=== PATIENT | female | born 1995 | race African-American/Black ===

== ENCOUNTER 2019-01-30 10:33 | Outpatient (CLI) | payer OTHER ==
--- NOTE | 2019-01-30 13:59 | ULT ---
OBSTETRICAL ULTRASOUND: INDICATIONS: Evaluate anatomy. COMPARISON: None. FINDINGS: There is a single live intrauterine gestation, in a cephalic presentation. The placenta is posterior in location without evidence of previa. Cardiac activity is noted at 167 beats per minute. The biparietal diameter is measured at 4.45 cm, giving a gestational age of 19 weeks 4 days. The head circumference measures 16.7 cm, giving an estimated gestational age of 19 weeks 3 days. The abdominal circumference measures 14.54 cm, giving an estimated gestational age of 19 weeks 6 days . The femoral length measures 2.98 cm, giving an estimated gestational age of 19 weeks 2 days. The average gestational age by ultrasound is 19 weeks 4 days with an estimated due date of 06/22/2019 . Clinical age is 19 weeks 6 days. Estimated due date is 06/20/2019. The estimated weight is 298 g, plus or minus 44 g (0 lbs 11 oz), 28th percentile. The visualized survey appears within normal limits for the head, stomach, kidneys, cord inserti on, bladder, spine, lips, nose, and extremities, as well as three-vessel cord. There is as mall echo genic focus seen adjacent to the distal and medial wall of the left ventricle, near the interventricu lar septum. This measures 2.6 mm in size. The head, kidneys, cord insertion, bladder, spine, lips, nose, extremities, and three-vessel cord appear within normal limits. The stomach is not well documented. IMPRESSION: 1. Single live intrauterine gestation with size and dates as above. 2. Small echogenic focus seen adjacent to the distal aspect of the interventricular septum within th e left ventricle is suspicious for either a small papillary muscle or possibly a cardiac echogenic fo cus. This can be a marker for trisomy. Short-term followup in two weeks is recommended. At this ti me, completion of the survey could be performed, as the stomach was not well documented. POS: [facility]
== END 2019-01-30 10:34 | disposition home or self-care (01) ==
LOC: BICULT 10:33
PROVIDERS: ATTEND Family Medicine
DX: Z34.82 Encounter for supervision of other normal pregnancy, second trimester (principal); Z3A.19 19 weeks gestation of pregnancy
CPT/HCPCS: 76805

== ENCOUNTER 2019-05-19 21:20 | Day surgery (SDC) | payer OTHER ==
[2019-05-19 21:59] VITALS: BP 87/51; TEMP 98.4; BMI 24.9
--- NOTE | 2019-05-19 22:17 | PDOC.LDHP ---
Labor and Delivery H&P Chief complaint: abdominal pain HPI: 24 y/o at 35w3d, patient of Dr. Spencer, presents with lower abdominal pains, worse with walking. Denies VB, LOF, or decreased FM. ROS neg for HEENT, cv, pulm, gi, gu, neuro, psych, skin, musculoskeletal or constitutional symptoms other than mentioned above OB History Details: 2 Term SVDs 1 at 36 weeks Current complications: none Past Medical History: None Current medications: pre- vitamins Previous surgical history: none Allergies/Adverse Reactions: Allergies Allergy/AdvReac Type Severity Reaction Status Date / Time No Known Allergies Allergy Unverified 05/19/19 22:00 Social history: none - Physical Exam Vital signs reviewed and normal: yes General: NAD, resting Lungs: nonlabored breathing Abdomen: gravid Extremeties: no edema FHT: category 1 (140s, mod variability, + accels, no decels) [place] contractions every: occasional - Vaginal Exam cm dilated: 1 Effacement: 0% Station: -3 - Assessment 24 y/o at 35w3d with musculoskeletal discomforts of and no e/ o active labor. status reassuring with reactive NST. - Plan -: D/c home with precautions. Comfort measures discussed. Advised to keep all appointments.
== END 2019-05-19 22:27 | disposition home or self-care (01) ==
LOC: L&D/OP 21:20
PROVIDERS: ATTEND Family Medicine
DX: O26.893 Other specified pregnancy related conditions, third trimester (principal); R10.30 Lower abdominal pain, unspecified; Z3A.35 35 weeks gestation of pregnancy
CPT/HCPCS: 99283

== ENCOUNTER 2019-06-16 09:16 | Inpatient (IN) | payer OTHER ==
[2019-06-17] MEDS ORDERED: NS w/ Oxytocin 10 units 500 ML IV SCH ×2 (03:13)
[2019-06-17] MEDS ORDERED: Carboprost 250 MCG/ML AMP IM PRN (03:13)
[2019-06-17] MEDS ORDERED: hydrALAZINE 20 MG/ML VIAL SLOW IVP PRN ×2 (03:13→12:13)
[2019-06-17] MEDS ORDERED: Butorphanol Tartrate 1 MG/ML VIAL SLOW IVP PRN (03:13)
[2019-06-17] MEDS ORDERED: Misoprostol 200 MCG TAB PR PRN (03:13)
[2019-06-17] MEDS ORDERED: NS / Oxytocin 40 units/1000ml 1,000 ML IV PRN (03:13)
[2019-06-17] MEDS ORDERED: Ibuprofen 800 MG TAB PO PRN (03:13)
[2019-06-17] MEDS ORDERED: Ondansetron PF 4 MG/2 ML Vial IVP PRN ×3 (03:13→12:13)
[2019-06-17] MEDS ORDERED: Methylergonovine 0.2 MG/ML VIAL IM PRN (03:13)
[2019-06-17] MEDS ORDERED: HYDROcodone/Acetaminophen 5/325 mg Tablet PO PRN ×3 (03:13→12:13)
[2019-06-17] MEDS ORDERED: Lidocaine 1% (PF) 30 ML VIAL SC PRN (03:13)
[2019-06-17] MEDS ORDERED: Diphenoxylate HCl/Atropine Tablet PO PRN (03:13)
[2019-06-17] MEDS ORDERED: Promethazine HCl 25 MG/ML VIAL IM PRN ×3 (03:13→12:13)
[2019-06-17] MEDS ORDERED: Penicillin G Potassium 5 MILL.UNITS in Sodium Chloride 0.9% 100 ML IVPB SCH (03:30)
[2019-06-17 03:31] VITALS: BMI 23.7
[2019-06-17] MEDS: Lactated Ringer's 1,000 ML IV SCH ×3 (04:09→15:52)
[2019-06-17] MEDS: Misoprostol 100 MCG TAB PO SCH ×2 (04:27→15:52)
[2019-06-17 04:29] LABS: Hemoglobin 8.4 g/dL (12.0-16.0); Mean Corpuscular HGB CONC 33.1 g/dL (32.0-36.0); Mean Corpuscular Hemoglobin 26.1 pg (27.0-31.0); Mean Corpuscular Volume 78.6 fL (78.0-98.0); Mean Platelet Volume 8.4 fL (7.4-10.4); Platelet Count 309 thou/uL (130-400); Red Blood Cell (RBC) Count 3.21 mill/uL (4.20-5.40); White Blood Cell (WBC) Count 11.7 thou/uL (4.8-10.8)
[2019-06-17 05:07] LABS: HBSAg Index 0.28 S/CO (0-0.99); Hep B Surf Ag Non-Reactive S/CO (NonReactive)
[2019-06-17 05:07] LABS: Syphilis Antibody Nonreactive (Nonreactive); Syphilis Antibody Index 0.04 S/CO (<1.00 Non-Reactive)
[2019-06-17] MEDS ORDERED: Fentanyl 4 mcg/Bup 0.1% Cadd 100 ML ONE (08:20)
[2019-06-17] MEDS: Penicillin G 2.5 MILL.units 2.5 MILL.UNITS in Premix Bag 1 BAG IVPB SCH ×3 (08:34→15:53)
[2019-06-17] MEDS ORDERED: Lactated Ringer's 500 ML IV PRN (10:47)
[2019-06-17] MEDS ORDERED: diphenhydrAMINE 50 MG/ML VIAL IVP PRN (10:47)
[2019-06-17] MEDS ORDERED: Acetaminophen 325 MG TAB PO PRN (10:47)
[2019-06-17] MEDS ORDERED: ePHEDrine/0.9% NaCl/PF SYRINGE 50 mg/10 ml SLOW IVP PRN (10:47)
[2019-06-17] MEDS ORDERED: Naloxone HCl 0.4 mg/ml Vial IVP PRN ×2 (10:47)
[2019-06-17] MEDS ORDERED: Communication Order-Pharmacy FS SCH (11:00)
[2019-06-17] MEDS ORDERED: Fentanyl 4 mcg/Bupivacaine 0.1% Cassette 100 ML EPIDURAL SCH (11:00)
[2019-06-17] MEDS ORDERED: diphenhydrAMINE 25 MG CAP PO PRN (12:13)
[2019-06-17] MEDS ORDERED: NS / Oxytocin 40 units/1000ml 1,000 ML IV SCH (12:13)
[2019-06-17] MEDS ORDERED: Preparation H Ointment 28 GM TUBE PR PRN (12:13)
[2019-06-17] MEDS ORDERED: Benzocaine-Menthol 82.5 ML CAN TOP PRN (12:13)
[2019-06-17] MEDS ORDERED: Milk Of Magnesia 30 ML UDCUP PO PRN (12:13)
[2019-06-17] MEDS ORDERED: Bisacodyl 10 MG SUPP PR PRN (12:13)
[2019-06-17] MEDS ORDERED: Lanolin Ointment 7 GM TUBE TOP PRN (12:13)
[2019-06-17] MEDS: Ibuprofen 800 MG TAB PO SCH ×2 (15:51→20:28)
[2019-06-17] MEDS: Ferrous Sulfate 325 MG TAB PO SCH (17:14)
[2019-06-17] MEDS: Docusate Calcium (SURFAK) 240 MG CAP PO SCH (20:27)
[2019-06-18] MEDS: Ibuprofen 800 MG TAB PO SCH ×2 (04:52→14:18)
[2019-06-18 08:35] LABS: #Basophils 0.1 thou/uL (0.0-0.2); #Eosinphils 0.1 thou/uL (0.0-0.7); #Lymphocytes 2.5 thou/uL (1.20-3.40); #Monocytes 1.3 thou/uL (0.11-0.59); #Neutrophils 12.7 thou/uL (1.40-6.50); %Basophils 0.3 % (0.0-1.0); %Eosinophils 0.5 % (0.0-10.0); %Lymphocytes 15.2 % (21.0-51.0); %Monocytes 7.6 % (0.0-10.0); %Neutrophils 76.4 % (42.0-75.0); Hemoglobin 8.2 g/dL (12.0-16.0); Mean Corpuscular HGB CONC 31.8 g/dL (32.0-36.0); Mean Corpuscular Volume 78.7 fL (78.0-98.0); Mean Platelet Volume 8.4 fL (7.4-10.4); Platelet Count 264 thou/uL (130-400); RBC Distribution Width 14.8 % (11.5-14.5); Red Blood Cell (RBC) Count 3.27 mill/uL (4.20-5.40); White Blood Cell (WBC) Count 16.6 thou/uL (4.8-10.8)
[2019-06-18] MEDS ORDERED: Prenatal Vitamin 1 TAB PO SCH (09:00)
[2019-06-18] MEDS: Ferrous Sulfate 325 MG TAB PO SCH (09:54)
[2019-06-18] MEDS: Docusate Calcium (SURFAK) 240 MG CAP PO SCH (09:54)
[2019-06-18] MEDS ORDERED: Adacel (T-DAP) 0.5 ML SYRINGE IM ONE (12:13)
[2019-06-18 16:42] VITALS: BP 99/72; TEMP 98.7
== END 2019-06-18 17:50 | disposition home or self-care (01) | DRG 807 ==
LOC: L&D 06-17 02:48 → 3SW 06-17 15:06
PROVIDERS: ADMIT Family Medicine; ATTEND Family Medicine
PROC: 10E0XZZ Delivery of Products of Conception, External Approach (ICD-10-PCS; principal; 2019-06-17)
PROC: 10907ZC Drainage of Amniotic Fluid, Therapeutic from Products of Conception, Via Natural or Artificial Opening (ICD-10-PCS; 2019-06-17)
PROC: 3E033VJ Introduction of Other Hormone into Peripheral Vein, Percutaneous Approach (ICD-10-PCS; 2019-06-17)
PROC: 3E0P7VZ Introduction of Hormone into Female Reproductive, Via Natural or Artificial Opening (ICD-10-PCS; 2019-06-17)
DX: O99.824 Streptococcus B carrier state complicating childbirth (principal); Z37.0 Single live birth; Z3A.39 39 weeks gestation of pregnancy
CPT/HCPCS: 36415; 51702; 85025; 85027; 86780; 86850; 86900; 86901; 87340; J2001; J2540; J3490